=== PATIENT | female | born 1985 ===

== ENCOUNTER 2020-10-10 14:40 | Emergency (ER) | payer OTHER ==
[2020-10-10 14:56] VITALS: BMI 27.4
[2020-10-10 16:05] LABS: BASO % 0.3 % (0-2.0); EOS % 2.3 % (0-4.5); HEMATOCRIT 33.6 % (32.4-45.2); HEMOGLOBIN 11.1 GM/dL (10.7-15.3); LYMPH % 38.3 % (8-40); MCH 29.2 pg (25.7-33.7); MEAN CELL VOLUME 88.4 fl (80-96); MEAN PLT VOLUME 10.2 fl (7.5-11.1); MONO % 10.7 % (3.8-10.2); NEUT % 48.4 % (42.8-82.8); PLATELET COUNT 206 K/MM3 (134-434); RDW 17.1 % (11.6-15.6); WHITE BLOOD COUNT 5.2 K/mm3 (4.0-10.0)
[2020-10-10 16:25] LABS: POTASSIUM 3.9 mmol/L (3.5-5.1)
[2020-10-10 16:28] LABS: BLOOD UREA NITROGEN 8.9 mg/dL (7-18)
[2020-10-10 16:31] LABS: CREATININE 0.6 mg/dL (0.55-1.3)
[2020-10-10 16:32] LABS: BILIRUBIN,TOTAL 0.3 mg/dL (0.2-1); TOT PROT 7.9 g/dl (6.4-8.2)
[2020-10-10 17:24] VITALS: BP 110/62; PULSE 84; TEMP 98
== END 2020-10-10 17:25 | disposition home or self-care (01) ==
LOC: JER 14:40 → EDBD 14:40 → JER 17:25
DX: R14.0 Abdominal distension (gaseous) (principal)
CPT/HCPCS: 36415; 80053; 84703; 85025; 99284-25

== ENCOUNTER 2020-11-01 19:41 | Emergency (ER) | payer OTHER ==
[2020-11-01 19:54] VITALS: BP 118/76; PULSE 99; TEMP 98.6; BMI 24.2
== END 2020-11-01 22:38 | disposition home or self-care (01) ==
LOC: JER 19:41
DX: F41.1 Generalized anxiety disorder (principal)
CPT/HCPCS: 93005; 93010; 99283-25